=== PATIENT | female | born 1965 | race African-American/Black ===

== ENCOUNTER 2023-12-27 15:18 | Emergency (ER) | payer OTHER ==
[2023-12-27 15:35] VITALS: RESP 16; TEMP 98.1; BMI 28.9
[2023-12-27] MEDS: SODIUM CHLORIDE 0.9% 1000 ML INFUS.BAG IV ONE (15:50)
[2023-12-27 16:27] LABS: HEMATOCRIT 34.5 % (32.4-45.2); HEMOGLOBIN 10.9 G/dL (10.7-15.3); MCH 22.7 pg (25.7-33.7); MCHC 31.5 g/dl (32.0-36.0); MEAN CELL VOLUME 72.1 fl (80-96); MEAN PLT VOLUME 9.5 fl (7.5-11.1); PLATELET COUNT 232.8 10^3/uL (134-434); RBC 4.78 10^6/uL (3.60-5.2); RDW 18.1 % (11.6-15.6); WHITE BLOOD COUNT 4.5 10^3/uL (4.0-10.8)
[2023-12-27 16:35] LABS: ALBUMIN 4.2 g/dl (3.4-5.0); BILIRUBIN,TOTAL 0.3 mg/dl (0.2-1); CALCIUM 9.4 mg/dl (8.5-10.1); MAGNESIUM 1.9 mg/dL (1.8-2.4); POTASSIUM 3.5 mmol/L (3.5-5.1); TOT PROT 6.7 g/dl (6.4-8.2)
[2023-12-27 16:39] LABS: PLATELET ESTIMATE ADEQUATE
[2023-12-27 17:21] LABS: INR 0.97 (0.83-1.09); PROTHROMBIN TIME (PATIENT) 11.1 SEC (9.7-13.0)
[2023-12-27 17:23] LABS: ACTIVATED PTT 26.4 SECONDS (25.2-36.5)
[2023-12-27 18:28] VITALS: BP 116/82; PULSE 76
== END 2023-12-27 18:35 | disposition home or self-care (01) ==
LOC: FER 15:18
DX: R55 Syncope and collapse (principal); R10.9 Unspecified abdominal pain
CPT/HCPCS: 36415; 71045-TC-FY; 80053; 81003; 83735; 84484; 85027; 85610; 85730; 93005; 99285-25